=== PATIENT | female | born 1970 | race Caucasian/White ===

== ENCOUNTER 2018-11-29 00:39 | Outpatient (CLI) | payer OTHER | END 2018-11-29 00:40 | disposition EMS.NT | LOC: EMS 00:39 | PROVIDERS: ATTEND Surgery | DX: R50.9 Fever, unspecified (principal) ==

== ENCOUNTER 2019-01-01 21:07 | Outpatient (CLI) | payer OTHER | END 2019-01-01 21:08 | disposition EMS.NT | LOC: EMS 21:07 | PROVIDERS: ATTEND Surgery | DX: R73.09 Other abnormal glucose (principal) ==

== ENCOUNTER 2021-03-24 15:07 | Outpatient (CLI) | payer OTHER | END 2021-03-24 15:08 | disposition short-term general hospital (02) | LOC: EMS 15:07 | DX: R53.1 Weakness (principal) | CPT/HCPCS: A0425; A0429 ==

== ENCOUNTER 2023-04-08 17:47 | Emergency (ER) | payer OTHER ==
[2023-04-08 18:44] LABS: BASOPHILS % (AUTO) 0.3 %; EOSINOPHILS % (AUTO) 0.2 %; HCT - HEMATOCRIT 39.7 % (37.0-47.0); HGB - HEMOGLOBIN 12.7 g/dL (12.0-16.0); LYMPHOCYTES # (AUTO) 0.7 10^3/uL (1.5-3.5); LYMPHOCYTES % (AUTO) 4.9 %; MEAN CORPUSCULAR HEMOGLOBIN 28.1 pg (27.0-31.0); MEAN CORPUSCULAR VOLUME 87.8 fL (81.0-99.0); MEAN PLATELET VOLUME 10.4 fL (7.9-10.8); MONOCYTES # (AUTO) 0.5 10^3/uL (0.0-1.0); NEUTROPHILS # (AUTO) 11.9 10^3/uL (1.5-6.6); NEUTROPHILS % (AUTO) 89.6 %; PLT - PLATELET COUNT 137 10^3/uL (130-450); RED BLOOD COUNT 4.52 10^6/uL (4.20-5.40); RED CELL DISTRIBUTION WIDTH 13.6 % (12.0-15.0); WHITE BLOOD COUNT 13.3 x10^3/uL (4.8-10.8)
[2023-04-08 19:06] LABS: ALBUMIN 3.5 g/dL (3.2-5.5); ALBUMIN/GLOBULIN RATIO 0.9 (1.0-2.2); BILIRUBIN,TOTAL 1.4 mg/dL (0.2-1.0); CALCIUM 9.3 mg/dL (8.5-10.3); CREATININE 0.7 mg/dL (0.6-1.3); POTASSIUM 3.8 mmol/L (3.5-4.5); TOTAL PROTEIN 7.2 g/dL (6.4-8.9)
[2023-04-08] MEDS ORDERED: HYDROmorphone 1 MG/ML CARPUJECT IVP STA ×3 (20:19→23:27)
[2023-04-08] MEDS ORDERED: ONDANSETRON 4 MG/2 ML VIAL IVP STA (20:19)
--- NOTE | 2023-04-08 20:25 | ED Physician Documentation ---
History of Present Illness - Stated complaint Stated Complaint: - Chief complaint Chief Complaint: Abd Pain - Additonal information Additional information: Patient 53-year-old female with past medical significant for morbid obesity, lymphedema, hiatal hernia, and surgical history for appendectomy and multiple hernia current pairs presenting to the emergency department with right lower quadrant abdominal pain and mass. Reports has felt a mass in this area for the last week.Recently she and multiple family members were positive for COVID but she reports that this was 2 weeks ago and is currently negative from home testing. States has had some nausea vomiting and decreased appetite and increasing pain. Does not have a surgeon with whom she follows.Denies diarrhea or changes in stool color/caliber.Denies fever, chills, chest pain, shortness of breath Review of Systems Constitutional: denies: Fever Eyes: denies: Loss of vision Ears: denies: Loss of hearing Nose: denies: Rhinorrhea / runny nose Throat: denies: Dental pain / toothache GI: reports: Abdominal Pain, Nausea. 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, Tubal ligation, Other - Present Medications Home Medications: Ambulatory Orders Medication Instructions Recorded Confirmed Furosemide [Lasix] 40 mg PO BID 01/02/14 03/29/14 Hydroxyzine HCl 25 mg PO DAILY 01/02/14 03/29/14 Levothyroxine [Synthroid] 50 mcg PO QDAC 01/02/14 03/29/14 Metoprolol Succinate [Toprol Xl] 100 mg PO DAILY 01/02/14 03/29/14 Omeprazole 40 mg PO DAILY 01/02/14 03/29/14 busPIRone [Buspar] 5 mg PO BID 01/02/14 03/29/14 traMADol [Ultram] 50 mg PO Q4HR PRN 01/02/14 03/29/14 Insulin Aspart (Vial) [NovoLOG] 25 units SUBQ TIDWM 01/16/14 03/29/14 Insulin Glargine [Lantus] 46 units SUBQ BID 01/16/14 03/29/14 Atorvastatin [Lipitor] 1 tab DAILY 03/26/14 03/29/14 Metformin HCl [Metformin HCl ER] 1 tab BID 03/26/14 03/29/14 Saccharomyces Boulardii [Florastor] 500 mg PO BIDWM #60 capsule 03/26/14 03/29/14 Clindamycin [Cleocin] 300 mg PO Q6H 7 Days capsule 03/29/14 Lactobacillus Combo No.10 1 each PO DAILY #30 capsule 03/29/14 [Probiotic] Meclizine [Antivert] 25 mg PO Q6H PRN #20 tablet 05/11/16 - Allergies Allergies/Adverse Reactions: Allergies Allergy/AdvReac Type Severity Reaction Status Date / Time clindamycin Allergy Unknown Verified 05/11/16 11:13 Sulfa (Sulfonamide Allergy Respiratory Verified 01/02/14 12:10 Antibiotics) vancomycin Allergy Rash Verified 01/02/14 12:10 - Social History Does the pt smoke?: No Smoking Status: Never smoker Does the pt drink ETOH?: Yes Does the pt have substance abuse?: Yes - Immunizations Immunizations are current?: Yes - POLST Patient has POLST: No PD ED PE NORMAL - Vitals Vital signs reviewed: Yes (Patient with mild tachycardia) - General General: Alert and oriented X 3, No acute distress, Other (Morbidly obese) - HEENT HEENT: Atraumatic, PERRL, EOMI, Ears normal, Moist mucous membranes, Pharynx benign - Neck Neck: Supple, no meningeal sign, No bony TTP, No adenopathy, Thyroid normal, No bruit - Cardiac Cardiac: RRR, No murmur, No gallop - Respiratory Respiratory: No respiratory distress - Abdomen Abdomen: Other (There is an area of tenderness in the right lower quadrant of the abdomen. There is no palpable or notable mass. [id number] ultrasonography demonstrates significant bowel gas. Exam limited by body habitus.) Results - Vitals Vitals: Vital Signs - 24 hr 04/08/23 04/08/23 17:56 21:30 Temperature 37.3 C Heart Rate 110 H 111 H Respiratory 20 17 Rate Blood Pressure 139/94 H 122/71 O2 Saturation 97 96 Oxygen O2 Source Room air - Labs Labs: Laboratory Tests 04/08/23 04/08/23 04/08/23 18:31 18:31 21:39 WBC 13.3 H RBC 4.52 Hgb 12.7 Hct 39.7 MCV 87.8 MCH 28.1 MCHC 32.0 RDW 13.6 Plt Count 137 MPV 10.4 Neut # (Auto) 11.9 H Lymph # (Auto) 0.7 L Whitman # (Auto) 0.5 Eos # (Auto) 0.0 Baso # (Auto) 0.0 Absolute Nucleated RBC 0.00 Nucleated RBC % 0.0 Sodium 133 L Potassium 3.8 Chloride 96 L Carbon Dioxide 26 Anion Gap 11.0 BUN 9 Creatinine 0.7 Estimated GFR (MDRD) 88 L Glucose 373 H Lactic Acid 1.5 Calcium 9.3 Total Bilirubin 1.4 H AST 9 L ALT 12 Alkaline Phosphatase 113 Total Protein 7.2 Albumin 3.5 Globulin 3.7 Albumin/Globulin Ratio 0.9 L Lipase 11 PD Medical Decision Making - ED course Complexity details: reviewed old records, reviewed results, re-evaluated patient, d/w patient ED course: Patient 53-year-old female presenting to the emergency department with right lower abdominal pain with associated mass. Past medical significant for appendectomy, hiatal hernia, incisional hernia, mor bid obesity, diabetes, sleep apnea. Patient had low level tachycardia on arrival to the emergency department but was otherwise hemodynamically stable. Did have an area of tenderness to palpation on arrival to the emergency department associated with the right lower aspect of her pannus. Jynat-zr-jigr ultrasonography was attempted and no objects were visualized due to increased gas pattern. No signs of local fluid collection or cellulitis on tetis-dk-jihd ultrasonography. Labs did demonstrate a minimal elevation in white blood cell count as well as a hyperglycemia and a very minimal elevation in bilirubin. Of note patient had normal lactic. CT of the abdomen pelvis was obtained which showed Bilateral inguinal hernias without indications of obstruction or strangulation. Patient received doses of hydromorphone in the emergency department and on reevaluation reported feeling significantly better with near complete resolution of her pain. She does currently take MS Contin and oxycodone at home for pain control. It is reassuring that her pain is resolved here in the emergency department. We discussed all findings in detail. She expressed that she felt comfortable going home with an intent to follow-up with primary care and reassured me that she would return promptly to the emergency department for any recurrent symptoms. I did discuss the importance of continuing to work towards weight loss. Otherwise clear return precautions given prior to discharge. Departure - Departure Disposition: 01 Home, Self Care Clinical Impression: Hernia of abdominal cavity Instructions: Hernia Comments: Thank you for allowing us to care for you today Fred. The CT scan today did show inguinal hernias without indications of strangulation or incarceration. It is very reassuring that your pain is improved here in the emergency department however as we discussed if it returns it is important that you return to the emergency room for reevaluation. I do want you to follow-up with your primary care doctor concerning your ER eval uation as soon as possible. I believe you would benefit from a referral to a major surgical center for continued monitoring and evaluation of your hernias. Again if you have new or worsening symptoms, if your pain returns, if you begin to have intractable nausea, vomiting, develop fever or any other worrisome symptoms please return to the emergency department immediately for reevaluation. Forms: PCP List
[2023-04-08] MEDS ORDERED: iohexoL-300 100 ML VIAL IVP ONE (21:44)
[2023-04-08 21:49] VITALS: O2SAT 96
--- NOTE | 2023-04-08 22:40 | CT Report ---
PROCEDURE: ABDOMEN/PELVIS W INDICATIONS: RLQ mass/hernia CONTRAST: 100 ML OMNI 300 TECHNIQUE: After the administration of IV contrast, 5 mm thick sections acquired from the diaphragms to the symp hysis. 5 mm thick coronal and sagittal reformats were acquired. For radiation dose reduction, the f ollowing was used: automated exposure control, adjustment of mA and/or kV according to patient size. COMPARISON: None FINDINGS: Image quality: Excellent. Lung bases and heart: Unremarkable. Liver: No solid mass. Gallbladder and biliary tree: Dependent luminal stones without wall thickening. Spleen: No splenomegaly. Pancreas: Atrophic without ductal dilation. Adrenals: No adrenal nodule. Kidneys and ureters: No hydronephrosis. No renal cystic lesion which requires follow up. No solid mas s. Bowel and peritoneum: No bowel distension. No pathologic free fluid. Lymph nodes: No central or retroperitoneal adenopathy. Vessels: No infrarenal aortic aneurysm. PELVIS Reproductive organs: Unremarkable. Bladder: No abnormal wall thickening, accounting for underdistension. Pelvic lymph nodes: No pelvic adenopathy by size criteria. Bones: No aggressive osseous abnormality. Other: Significant bowel containing inguinal hernias. No visualized incarceration or strangulation. IMPRESSION: Significant bowel containing inguinal hernias without visualized incarceration or strangulation. Reviewed by: Liudmila Lema MD on 04/08/2023 10:38 PM PST Approved by: Liudmila Lema MD on 04/08/2023 10:38 PM PST Station ID: [id number]
[2023-04-09 00:07] VITALS: BP 124/93
== END 2023-04-08 23:55 | disposition home or self-care (01) ==
LOC: ED 17:47
DX: K46.9 Unspecified abdominal hernia without obstruction or gangrene (principal); K40.20 Bilateral inguinal hernia, without obstruction or gangrene, not specified as recurrent
CPT/HCPCS: 36415; 74177; 80053; 83605; 83690; 85025; 96374; 96376; 99284; J1170; Q9967